=== PATIENT | female | born 1970 | race Caucasian/White ===

== ENCOUNTER 2018-09-28 09:02 | Day surgery (SDC) | payer MEDICARE, OTHER ==
[~2018-09-28 09:02] MED LIST: LACTATED RINGERS 1,000 ML IV.SOLN IV ONE; MIDAZOLAM HCL 2 MG/2 ML VIAL ONE; fentaNYL CITRATE/PF 100 MCG/2 ML INJ. ONE
== END 2018-09-28 11:15 ==
LOC: OPSURG 09:02
PROVIDERS: ATTEND Physical Medicine & Rehabilitation
DX: M47.817 Spondylosis without myelopathy or radiculopathy, lumbosacral region (principal); M54.5 Low back pain
CPT/HCPCS: 64635; 64636; J2250; J3010; J7120